=== PATIENT | male | born 1930 | race Caucasian/White ===

== ENCOUNTER 2017-01-13 14:07 | Day surgery (SDC) | payer MEDICARE, MEDICAID ==
[~2017-01-13 14:07] MED LIST: CENTTAB PO; LORTA5 PO
[2017-01-13 14:33] VITALS: BP 180/83; PULSE 75; RESP 18; O2SAT 99
--- NOTE | 2017-01-16 11:42 | RADRPT ---
EXAM DATE/TIME: 01/13/2017 14:40 [facility] COMPARISON : INDICATIONS : Consultation for evaluation of sir sphere (ytrium) embolization of the liver for treatment of metasta tic disease which is refractory to medical management. OBJECTIVE: Temperature: 98.7 Heart Rate: 75 Blood Pressure: 180/83 Respiratory: 20 Oximetry: 99 PNEUMONIA VACCINE: NO HISTORY OF PRESENT ILLNESS: The patient was initially diagnosed with colon carcinoma in 2011. He underwent resection of the prima ry lesion. The patient developed metastatic disease to the liver. The patient has been treated since 2011 with chemotherapy. Most recently however, the patient is no longer able to tolerate chemotherapy infusion do to decreasing blood counts. The patient has a previous history of external beam radiatio n to the liver as well. The most recent CT images dated 12/25/16 demonstrated the lesion in the superi or margin of the right lobe of the liver to be stable. There has been progression of the metastatic l esions within the left lobe. The patient's functional status at present is excellent. He lives on his own and enjoys a high quality of life. The patient's total bili is 0.9. There is no evidence of biliary ductal dilation on the patient's CT examination. Other than the metastatic lesions the liver is fairly normal in appearance. There is a s mall amount of ascites within the abdomen. PAST MEDICAL HISTORY : Carcinoma, colon. Metastatic, liver. PAST SURGICAL HISTORY : Right Hip fracture Right Elbow SOCIAL HISTORY : Social alcohol use. 1. NKDA Prinivil (Lisinopril) PHYSICAL EXAMINATION: The patient is a healthy-appearing 86-year-old in no acute distress. The patient has no current compl aints. Cardiovascular: No complaints. Lungs: No current complaints. Abdomen: Soft nontender. Extremities: Within normal limits IMAGING STUDIES: A large series of CT images were reviewed. Patient's scans dating back to 2011 were reviewed. These a gain demonstrate a stable mass in the dome of the liver measuring slightly larger than 5 cm. There linda s been significant progression of the lesions within the left lobe. ASSESSMENT: The case was discussed with Dr. Kb almaraz. The patient had external beam radiation therapy treatmen t to both the right and left lobe of the liver. As such, I do not feel the patient is a candidate for radioactive embolic therapy due to the previous dosage of radiation received. PLAN: The patient is not a candidate for ytrium embolic therapy due to previous high dose, external beam ra diation therapy to the liver. Dr. Posey will be notified. TIME SPENT: 30 minutes. Esvin Sanchez MD on January 15, 2017 at 16:27 Board Certified Radiologist. This report was verified electronically.
== END 2017-01-13 15:30 | disposition home or self-care (01) ==
LOC: HROP 14:07 → HRIP 14:12 → HROP 15:30
PROVIDERS: ATTEND Internal Medicine Hematology & Oncology
DX: C78.7 Secondary malignant neoplasm of liver and intrahepatic bile duct (principal); Z85.038 Personal history of other malignant neoplasm of large intestine

== ENCOUNTER 2017-11-27 13:05 | Day surgery (SDC) | payer MEDICARE, MEDICAID, OTHER ==
--- NOTE | 2017-11-27 14:17 | RADRPT ---
EXAM DATE/TIME: 11/27/2017 00:00 [facility] COMPARISON : INDICATIONS : <consult y 90<?>> OBJECTIVE: Temperature: 98.4 Heart Rate: 96 Blood Pressure: 154/82 Respiratory: 18 Oximetry: 100 PNEUMONIA VACCINE: HISTORY OF PRESENT ILLNESS: Helio is a very pleasant 87-year-old male accompanied by his son referred for possible local regio nal treatment for metastatic colorectal CA. He was originally diagnosed in 2010 and is status post mu ltiple lines of chemotherapy as well as radiation treatment 3 years ago to the dominant mass in the r ight lobe. Most recent CT examination demonstrates interval progression of disease with bilobar metas tatic disease and dominant mass in segment 2 of the liver. He has an excellent functional status (ECO G 0) with intact hepatic function. 1. anemia 2. diverticulosis 3. gout 4. hemorrhoids 5. coloc cancer PAST SURGICAL HISTORY : 1. port placement 2. tonsillectomy 3. upper endoscopy 4. broken pelvic 3 screws placed 5. colonoscopy SOCIAL HISTORY : No alcohol use. MEDICATIONS: 1. doxycycline 100 mg q.d. ketoconazole shampoo prn vit b 12 1 tab q.d. vit c 1 tab q.d. vit d 1 tab q.d. LABS: Platelet count of 77,000. Total bilirubin of 0.6 Albumin 3.3. AST 51 ALT 22 Alkaline phosphatase 106. CEA 644. PHYSICAL EXAMINATION: General: No acute distress Abdomen: Soft, nontender nondistended IMAGING STUDIES: CT examination dated 11/03/2017 is reviewed. There are multiple bilobar hepatic metastases with a celina nant mass in segment 2 measuring up to 8.3 cm and a dominant mass in the central right lobe measuring up to 6 cm. No evidence for extrahepatic disease with patent portal vein. ASSESSMENT: Progressive bilobar hepatic colorectal metastatic disease with excellent functional status and intact hepatic function. He does have a history of previous radiation treatment although remote. He is othe rwise a reasonable candidate for Yttrium-90 embolization. Extensive discussion regarding risks and benefits of yttrium-90 embolization. All questions were answ ered. PLAN: Tentative plan for yttrium-90 embolization. TIME SPENT: 30 minutes. Nitesh Willoughby MD on November 27, 2017 at 14:00 Board Certified Radiologist. This report was verified electronically.
== END 2017-11-27 14:00 | disposition home or self-care (01) ==
LOC: HROP 13:05 → HRIP 13:06 → HROP 14:00
PROVIDERS: ATTEND Internal Medicine Hematology & Oncology
DX: C78.7 Secondary malignant neoplasm of liver and intrahepatic bile duct (principal); C19 Malignant neoplasm of rectosigmoid junction

== ENCOUNTER 2017-12-03 06:18 | Day surgery (SDC) | payer MEDICARE, MEDICAID, OTHER ==
[~2017-12-03] VITALS: Ht 175.3 cm; Wt 54.5 kg
[2017-12-03] VITALS (9 sets, daily range): BP systolic 136–161; BP diastolic 66–94; PULSE 56–86; RESP 16–20; TEMP 97.9; O2SAT 95–97
[2017-12-03] MEDS ORDERED: SODIUM CHLOR 0.9% 1000 ML INJ 1,000 ML IV SCH (07:00)
[2017-12-03] MEDS ORDERED: VITA250C3 CHEW (07:04)
[2017-12-03] MEDS ORDERED: VITA500T4 PO (07:04)
[2017-12-03] MEDS ORDERED: VITA1000 PO (07:04)
[2017-12-03] MEDS ORDERED: DOXY100C PO (07:04)
[2017-12-03 07:41] LABS: INTERNATIONAL NORMALIZED RATIO 1.1 RATIO; PROTHROMBIN TIME - PATIENT 11.4 SEC (9.8-11.6)
[2017-12-03] MEDS ORDERED: MIDAZOLAM HCL 2 MG/2 ML VIAL ONE ×2 (08:58→09:49)
[2017-12-03] MEDS ORDERED: fentaNYL CITRATE 250 MCG/5 ML AMP ONE (08:58)
[2017-12-03] MEDS ORDERED: VERAPAMIL HCL 5 MG/2 ML VIAL ONE (08:59)
[2017-12-03] MEDS ORDERED: IMPLANTED VASCULAR ACCESS PORT - SODIUM CHLORIDE FLUSH IV FLUSH SCH (10:00)
[2017-12-03] MEDS ORDERED: IOHEXOL 350 MG/ML 50 ML BTL (for RAD DIAG) OTHER ONE (10:00)
[2017-12-03] MEDS ORDERED: GELATIN 12 MM/7 MM FOAM I-ARTERIAL ONE (10:20)
[2017-12-03] MEDS ORDERED: SODIUM CHLORIDE 0.9% INJ 20 ML ONE (10:30)
[2017-12-03] MEDS ORDERED: STERILE WATER FOR INJECTION 10 ML VIAL ONE (10:30)
--- NOTE | 2017-12-03 11:18 | PD.RAD ---
Post Procedure Progress Note Pre Procedure Diagnosis: (1) Metastases to the liver Post Procedure Diagnosis: (1) Metastases to the liver Procedure Date: Dec 03, 2017 Supervising Radiologist: Nitesh Willoughby Proceduralist/Assist: Tracie Mobley RT(R)(), Marlene Samaniego RT(R) Anesthesia: Conscious Sedation Plan of Activity Patient to Unit: ROPU Patient Condition: Good See PACS Report for procedural detail/treatment Nitesh Willoughby MD Dec 03, 2017 11:18
--- NOTE | 2017-12-03 13:22 | RADRPT ---
EXAM DATE/TIME: 12/03/2017 08:55 [place] Corrected on: December 05, 2017; COMPARISON: No previous studies available for comparison. INDICATIONS : 87-year-old with history of colorectal metastatic disease to the liver who presents for Y90 mapping. MEDICAL HISTORY : Anemia, Gout, Metastatic colon cancer, Large mass ascending colon, Hepatic lesions mostly in the righ t lobe SURGICAL HISTORY : Port placement, Upper endoscopy, Left hip surgery, Colonoscopy ENCOUNTER: Initial ACUITY: > 1 year PAIN SCORE: 0/10 FLUORO TIME: 26.7 minutes IMAGE SERIES: 9 ACCESS SITE: Left Radial artery SEDATION TIME: 90 minutes CONTRAST: 1.) 60 cc Omnipaque (iohexol) 350 MEDICATION(S): 1.) 3.5 mg midazolam (Versed) IV 2.) 175 mcg fentanyl (Sublimaze) IV DEVICE(S): 1.) gastroduodenal artery Interlock 2D [id number] embolic coil(s) 2.) gastroduodenal artery Interlock 2D [id number] embolic coil(s) 3.) gastroduodenal artery 12-7mm Gelfoam 4.) Left radial artery Radial band [id number] PROCEDURES PERFORMED: 1. Ultrasound guided left radial artery access 2. Administration of conscious sedation 3. Selective catheterization in the common hepatic artery with selective angiography 4. Subselective catheter placement in the proper hepatic artery with subselective angiography 5. Subselective catheter placement in the left hepatic artery with subsequent angiography 6. Subselective catheter placement in the right hepatic artery with subselective angiography 7. Embolization of the gastroduodenal artery 8. Interarterial administration of technetium 99m MAA separately in the left and right hepatic arteri es FINDINGS: The patient was placed supine. The access site was prepped in sterile fashion. Full sterile technique was used, including cap, mask, sterile gloves and gown, and a large sterile sheet. Hand hygiene and 2% chlorhexidine and/or Betadine/alcohol prep was utilized per protocol for cutaneous antisepsis. The skin and subcutaneous tissues were infiltrated with local anesthetic solution. Monitored moderate conscious sedation was provided for this procedure with continued monitoring of pa tient consciousness and physiologic status provided by interventional radiology nurse throughout the procedure and documented. Patient was placed supine on the angiographic table. Ultrasound evaluation of the left radial artery demonstrated the artery to be patent. Single image was obtained and placed in PACS archive. Micropunc ture needle was advanced into the left radial artery under direct ultrasound guidance and subsequentl y exchanged for a slim 5 Chilean sheath. The 4 [place]an Susana catheter was then advanced into the celiac artery and subsequently secured in the common hepatic artery and angiography was performed. This dem onstrated standard celiac anatomy with significant abnormal enhancement throughout the left lobe of t he liver near the dome consistent with patient's known metastatic disease. Microcatheter was then adv anced into the gastroduodenal artery and position was confirmed a small amount of contrast. The gastr oduodenal artery was subsequently embolized with interlock coils and Gelfoam. Followup angiography de monstrated stasis of flow in the GDA. The catheter was then advanced into the proper hepatic artery a nd angiography was performed. A very small tortuous probable supraduodenal artery was identified near the origin of the right hepatic artery. Numerous attempts at cannulating this artery were unsuccessf ul although a guidewire could be advanced into the proximal segment. Microcatheter was subsequent adv anced into the left hepatic artery and angiography was performed. This again confirm extensive abnorm al enhancement throughout the left lobe. Catheter was then readvanced into the right hepatic artery a nd angiography was performed. This demonstrated primary abnormal enhancement near the dome of the arturo er and inferiorly. Finally, a solution containing technetium 99m MAA was injected into the left and r ight hepatic arteries and the catheter was removed. Hemostasis was then obtained by placement of a radial compression device. Patient tolerated the proce dure well. CONCLUSION: 1. Standard celiac anatomy. 2. Coil embolization of the gastroduodenal artery. 3. A very small tortuous probable supraduodenal branch arising from the proximal right hepatic artery could not be cannulated despite multiple attempts, as above. 4. Uncomplicated interarterial administration of technetium 99m MAA for performance of Yttrium-90 map ping. Nitesh Willoughby MD on December 03, 2017 at 13:12 Board Certified Radiologist. Board Certified Radiologist. This report was verified electronically.
--- NOTE | 2017-12-03 15:50 | RADRPT ---
EXAM DATE/TIME: 12/03/2017 13:52 [facility] COMPARISON: No previous studies available for comparison. INDICATIONS : Rectal and colon cancer. DOSE: 4.2 mCi Tc99m MAA Intraarterial IMAGING: SPECT/CT imaging with fusion was performed. RADIATION DOSE: 2.49 CTDIvol (mGy) MEDICAL HISTORY : Carcinoma, colon. Hernia, hiatal. SURGICAL HISTORY : Right elbow and pelvis. ENCOUNTER: Initial ACUITY: 1 day PAIN SCALE: 0/10 LOCATION: Liver. COMPARISON: No previous studies obtainable for comparison. FINDINGS: Activity is confined to the liver. No extrahepatic activity is demonstrated. There is a 6.1% lung yuan nt calculation. CONCLUSION: 1. Activity injected in the hepatic arteries is confined to the liver. No extrahepatic activity. 2. Lung shunt of 6.1%. Nitesh Willoughby MD on December 03, 2017 at 15:42 Board Certified Radiologist. This report was verified electronically.
== END 2017-12-03 16:15 | disposition home or self-care (01) ==
LOC: HROP 06:18 → HRIP 06:19 → HROP 16:15
PROVIDERS: ATTEND Internal Medicine Hematology & Oncology
DX: C78.7 Secondary malignant neoplasm of liver and intrahepatic bile duct (principal); C19 Malignant neoplasm of rectosigmoid junction; D64.9 Anemia, unspecified; K44.9 Diaphragmatic hernia without obstruction or gangrene; M10.9 Gout, unspecified
CPT/HCPCS: 36247; 36248; 37243; 75726; 75774; 76937; 78802; 85610; 85730; 99152; 99153; A9540; C1769; C1887; C1894; J2250; J3010; J7030; Q9967

== ENCOUNTER 2017-12-09 09:54 | Emergency (ER) | payer MEDICARE, MEDICAID ==
[~2017-12-09] VITALS: Ht 175.3 cm; Wt 70.0 kg
[~2017-12-09 09:54] MED LIST changes: +DOXY100C PO; +VITA1000 PO; +VITA250C3 CHEW; +VITA500T4 PO
[2017-12-09 10:00] VITALS: BP 147/69; PULSE 96; RESP 16; TEMP 98; O2SAT 99
--- NOTE | 2017-12-09 10:47 | PD ---
HPI Chief Complaint: Abdominal Pain Time Seen by Provider: 10:12 Travel History International Travel<30 days: No Contact w/Intl Traveler<30days: No Traveled to known affect area: No History of Present Illness HPI Patient is an 87-year-old male with a history of colon cancer with metastases to liver according Dr. Peterson's notes has not had a very good response to chemotherapy. The patient this week is being evaluated for Ytrium embolization and apparently had some coiling as well as some technetium mapping of his hepatic artery system for this procedure. Had a catheterization with interventional radiology this week through his right radial artery. The patient is now experiencing some worsening right upper quadrant pain and was not told that he was supposed to have significant pain after the procedure so wanted to come in and be seen. He called the interventional radiologist on- call which was Dr. Schaefer who told him to come in and be seen to make sure that he is on target for his embolization procedure. Patient denies any nausea vomiting denies any skin changes denies any diarrhea or constipation. states the pain is moderate, right upper quadrant, no radiation, context as above PFSH Past Medical History Cancer: Yes (COLON AND LIVER) Cardiovascular Problems: No Chemotherapy: Yes Cerebrovascular Accident: No Diabetes: No Endocrine: No Genitourinary: No Hepatitis: No Hiatal Hernia: Yes Immune Disorder: No Musculoskeletal: No Neurologic: No Psychiatric: No Reproductive: No Respiratory: No Thyroid Disease: No Tetanus Vaccination: Unknown Influenza Vaccination: No Past Surgical History Abdominal Surgery: No AICD: No Arteriovenous Shunt: No Body Medical Devices: hardware in the right elbow Cardiac Surgery: No Ear Surgery: No Endocrine Surgery: No Eye Surgery: No Genitourinary Surgery: No Gynecologic Surgery: No Insulin Pump: No Joint Replacement: No Oral Surgery: No Pacemaker: No Thoracic Surgery: Yes (PORT INSERTION) Other Surgery: Yes (INFUSAPORT PLACEMENT) Social History Alcohol Use: No Tobacco Use: No Substance Use: No Allergies-Medications (Allergen,Severity, Reaction): Coded Allergies: No Known Allergies (Unverified , 10/20/12) Reported Meds & Prescriptions Reported Meds & Active Scripts Active Reported Vitamin D-1000 (Cholecalciferol) 1,000 Unit Tab 1,000 Units PO DAILY Vitamin C (Ascorbic Acid) 250 Mg Chew 1,000 Mg CHEW DAILY Vitamin B-12 (Cyanocobalamin) 500 Mcg Tab 2,500 Mcg PO DAILY Doxycycline Hyclate 100 Mg Cap 100 Mg PO BID [place] 5-325 mg (Hydrocodone-Acetaminophen 5-325 mg) 325 Mg/5 Mg Tab 1-2 Tab PO Q4-6HPRN UNKNOWN DOSE Daily Multi-Vitamin/Mine (Multiple Vitamins W/ Minerals) Tab 1 PO DAILY Review of Systems Except as stated in HPI: all other systems reviewed are Neg Physical Exam Narrative GENERAL: Well-developed very thin male in no obvious distress peer SKIN: Focused skin assessment warm/dry. HEAD: Atraumatic. Normocephalic. EYES: Pupils equal and round. No scleral icterus. No injection or drainage. ENT: No nasal bleeding or discharge. Mucous membranes pink and moist. NECK: Trachea midline. No JVD. CARDIOVASCULAR: Regular rate and rhythm. No murmur appreciated. RESPIRATORY: No accessory muscle use. Clear to auscultation. Breath sounds equal bilaterally. GASTROINTESTINAL: Abdomen soft, patient's fairly tender and well localized to the right upper quadrant, there is some hepatomegaly. No rebound no percussive tenderness in any of the other quadrants however there is mild percussive tenderness in the right upper quadrant. nondistended. Hepatic and splenic margins not palpable. MUSCULOSKELETAL: No obvious deformities. No clubbing. No cyanosis. No edema. NEUROLOGICAL: Awake and alert. No obvious cranial nerve deficits. Motor grossly within normal limits. Normal speech. PSYCHIATRIC: Appropriate mood and affect; insight and judgment normal. Data Data Last Documented VS Vital Signs Date Time Temp Pulse Resp B/P (MAP) Pulse Ox O2 Delivery O2 Flow Rate FiO2 12/09/17 13:46 12/09/17 12:19 18 12/09/17 10:54 90 97 Room Air 12/09/17 10:00 98.0 Orders Orders Complete Blood Count With Diff (12/09/17 10:46) Comprehensive Metabolic Panel (12/09/17 10:46) Lipase (12/09/17 10:46) Prothrombin Time / Inr (Pt) (12/09/17 10:46) Act Partial Throm Time (Ptt) (12/09/17 10:46) Iv Access Insert/Monitor (12/09/17 10:46) Ecg Monitoring (12/09/17 10:46) Oximetry (12/09/17 10:46) Sodium Chloride 0.9% Flush (Ns Flush) (12/09/17 11:00) Ibuprofen (Motrin) (12/09/17 11:00) Ct Abd/Pel W Iv Contrast(Rout) (12/09/17 ) Iohexol 350 Inj (Omnipaque 350 Inj) (12/09/17 12:31) Ed Discharge Order (12/09/17 13:21) Heparin Central Flush (Heparin Central F (12/09/17 13:30) Labs Laboratory Tests Test 12/09/17 11:05 White Blood Count 5.4 TH/MM3 Red Blood Count 3.39 MIL/MM3 Hemoglobin 10.4 GM/DL Hematocrit 30.5 % Mean Corpuscular Volume 90.0 FL Mean Corpuscular Hemoglobin 30.8 PG Mean Corpuscular Hemoglobin Concent 34.2 % Red Cell Distribution Width 15.0 % Platelet Count 107 TH/MM3 Mean Platelet Volume 9.5 FL Neutrophils (%) (Auto) 76.1 % Lymphocytes (%) (Auto) 12.0 % Monocytes (%) (Auto) 10.2 % Eosinophils (%) (Auto) 1.5 % Basophils (%) (Auto) 0.2 % Neutrophils # (Auto) 4.1 TH/MM3 Lymphocytes # (Auto) 0.7 TH/MM3 Monocytes # (Auto) 0.6 TH/MM3 Eosinophils # (Auto) 0.1 TH/MM3 Basophils # (Auto) 0.0 TH/MM3 CBC Comment DIFF FINAL Differential Comment Prothrombin Time 12.1 SEC Prothromb Time International Ratio 1.2 RATIO Activated Partial Thromboplast Time 40.3 SEC Blood Urea Nitrogen 15 MG/DL Creatinine 1.01 MG/DL Random Glucose 126 MG/DL Total Protein 6.6 GM/DL Albumin 2.5 GM/DL Calcium Level 8.5 MG/DL Alkaline Phosphatase 230 U/L Aspartate Amino Transf (AST/SGOT) 105 U/L Alanine Aminotransferase (ALT/SGPT) 106 U/L Total Bilirubin 1.2 MG/DL Sodium Level 142 MEQ/L Potassium Level 3.6 MEQ/L Chloride Level 109 MEQ/L Carbon Dioxide Level 24.7 MEQ/L Anion Gap 8 MEQ/L Estimat Glomerular Filtration Rate 70 ML/MIN Lipase 94 U/L MDM Medical Decision Making Medical Screen Exam Complete: Yes Emergency Medical Condition: Yes Differential Diagnosis Liver injury, liver hematoma, liver bleeding, intra-abdominal bleeding, Narrative Course Patient was roomed in the emergency department, spoke with Dr. Duval about this patient and told him that he is somewhat tender over his liver, he did have a good response to ibuprofen is feeling better. I suggested that some form of imaging is necessary but after discussion with him he recommends that a routine CT abdomen pelvis with IV contrast should be sufficient. So ordered and did not show any evidence of acute injury from procedure: Last 24 hours Impressions Abdomen/Pelvis CT 12/09/17 0000 Signed Impressions: Service Date/Time: Saturday, December 09, 2017 12:24 - CONCLUSION: 1. Multiple hepatic masses as described above. 2. Mild splenomegaly with 8 mm indeterminate low density lesion anteriorly. 3. Distended thick-walled urinary bladder with multiple diverticula. 4. Uncomplicated colonic diverticulosis. 5. Left inguinal hernia containing fat and fluid. 6. Minimal ascites. 7. Tiny pericardial effusion. Storm Morris MD Ultimately I was able to discuss this patient with Dr. Schaefer as well, he actually took the patient's phone call and referred him to the emergency department and after the CT read as negative and discussion of the patient's minimally elevated transaminases he agrees the patient is still on target for intravascular embolization procedure next week. I have no other emergent concerns about this patient at this time he is stable for discharge. He was offered a prescription for opiate pain medication and declined stating that ibuprofen will work fine for him. Discussed following up with his oncologist and his interventional radiologist as prescribed. He is stable for discharge Diagnosis Primary Impression: RUQ abdominal pain Disposition: 01 DISCHARGE HOME Condition: Stable Storm León MD Dec 09, 2017 10:47
[2017-12-09 10:54] VITALS: BP 153/70; PULSE 90; RESP 18; O2SAT 96; O2SAT 97
[2017-12-09] MEDS ORDERED: IBUPROFEN 600 MG TAB PO ONE (11:00)
[2017-12-09] MEDS ORDERED: SODIUM CHLORIDE 0.9% FLUSH 10 ML FLUSH IV FLUSH PRN (11:00)
[2017-12-09 11:26] LABS: AUTOMATED NEUTROPHIL # 4.1 TH/MM3 (1.8-7.7); BASOPHIL % 0.2 % (0.0-2.0); EOSINOPHIL # 0.1 TH/MM3 (0-0.4); EOSINOPHIL % 1.5 % (0.0-4.0); HEMATOCRIT 30.5 % (39.0-51.0); HEMOGLOBIN 10.4 GM/DL (13.0-17.0); LYMPHOCYTE # 0.7 TH/MM3 (1.0-4.8); MEAN CORPUSCULAR HEMOGLOBIN 30.8 PG (27.0-34.0); MEAN CORPUSCULAR HGB CONC 34.2 % (32.0-36.0); MEAN PLATELET VOLUME 9.5 FL (7.0-11.0); MONO % 10.2 % (0.0-8.0); MONOCYTE # 0.6 TH/MM3 (0-0.9); NEUT % 76.1 % (16.0-70.0); PLATELET COUNT 107 TH/MM3 (150-450); RED BLOOD COUNT 3.39 MIL/MM3 (4.50-5.90); WHITE BLOOD COUNT 5.4 TH/MM3 (4.0-11.0)
[2017-12-09 11:37] LABS: INTERNATIONAL NORMALIZED RATIO 1.2 RATIO; PROTHROMBIN TIME - PATIENT 12.1 SEC (9.8-11.6)
[2017-12-09 11:44] LABS: ALBUMIN 2.5 GM/DL (3.4-5.0); ALT (GPT) 106 U/L (12-78); AST (GOT) 105 U/L (15-37); BICARBONATE 24.7 MEQ/L (21.0-32.0); BLOOD UREA NITROGEN 15 MG/DL (7-18); CALCIUM 8.5 MG/DL (8.5-10.1); CHLORIDE 109 MEQ/L (98-107); CREATININE 1.01 MG/DL (0.60-1.30); GLOMERULAR FILTRATION RATE 70 ML/MIN (>89); GLUCOSE,RANDOM 126 MG/DL (74-106); SODIUM (NA) 142 MEQ/L (136-145)
[2017-12-09 11:46] LABS: ALKALINE PHOSPHATASE 230 U/L (45-117); TOTAL BILIRUBIN ADULT 1.2 MG/DL (0.2-1.0); TOTAL PROTEIN 6.6 GM/DL (6.4-8.2)
[2017-12-09 12:19] VITALS: RESP 18
[2017-12-09] MEDS ORDERED: IOHEXOL 350 MG/ML 10 ML VIAL (for RAD DIAG) IVCONTRAST ONE (12:31)
--- NOTE | 2017-12-09 12:55 | RADRPT ---
EXAM DATE/TIME: 12/09/2017 12:24 [facility] COMPARISON: No previous studies available for comparison. INDICATIONS : Right abdomen pain IV CONTRAST: 93 cc Omnipaque 350 (iohexol) IV ORAL CONTRAST: No oral contrast ingested. RADIATION DOSE: 6.71 CTDIvol (mGy) MEDICAL HISTORY : Carcinoma, colon. Carcinoma, hepatocellular. SURGICAL HISTORY : None. ENCOUNTER: Initial ACUITY: 1 day PAIN SCALE: 4/10 LOCATION: Right anterior TECHNIQUE: Volumetric scanning of the abdomen and pelvis was performed. Using automated exposure control and ad justment of the mA and/or kV according to patient size, radiation dose was kept as low as reasonably achievable to obtain optimal diagnostic quality images. DICOM format image data is available electro nically for review and comparison. FINDINGS: Multiple hepatic masses are noted with the largest mass in the left lobe measuring 9.5 cm and the lar gest mass in the right lobe measuring 6.6 cm. Several smaller lesions are noted within both lobes als o. The findings are suggestive of multifocal hepatocellular carcinoma or possible metastatic disease. Some ascites is noted along the edge of the liver. No biliary ductal dilatation is noted. The gallbl adder is nondistended. The spleen is mildly prominent. There is an indeterminate low density lesion w ithin the anterior aspect of the spleen measures 8 mm. The pancreas is normal. The adrenal glands are normal bilaterally. The kidneys enhance briskly and demonstrate no evidence of focal mass or hydrone phrosis. The abdominal aorta is calcified but is not aneurysmally dilated. A circumaortic left renal vein is noted. The inferior vena cava is normal. No para-aortic, retrograde or mesenteric lymphadenop athy is noted. Uncomplicated colonic diverticulosis is noted. No acute diverticulitis is noted. The u rinary bladder is distended and its wall is thickened. Multiple diverticula are noted extending from the urinary bladder. The prostate gland is mildly prominent and contains central calcifications. Left inguinal hernia is noted and contains fat and some fluid. No pelvic lymphadenopathy is noted. Fibrot ic scarring is noted within the lung bases. Tiny pericardial effusion is noted Three screws are noted within the left proximal femur. CONCLUSION: 1. Multiple hepatic masses as described above. 2. Mild splenomegaly with 8 mm indeterminate low density lesion anteriorly. 3. Distended thick-walled urinary bladder with multiple diverticula. 4. Uncomplicated colonic diverticulosis. 5. Left inguinal hernia containing fat and fluid. 6. Minimal ascites. 7. Tiny pericardial effusion. Storm Morris MD on December 09, 2017 at 12:43 Board Certified Radiologist. This report was verified electronically.
== END 2017-12-09 14:19 | disposition home or self-care (01) ==
LOC: NEPC 09:54
DX: R10.11 Right upper quadrant pain (principal); R16.0 Hepatomegaly, not elsewhere classified; R16.1 Splenomegaly, not elsewhere classified; K57.30 Diverticulosis of large intestine without perforation or abscess without bleeding; K40.90 Unilateral inguinal hernia, without obstruction or gangrene, not specified as recurrent; R18.8 Other ascites; I31.3 Pericardial effusion (noninflammatory); Z85.038 Personal history of other malignant neoplasm of large intestine; Z85.05 Personal history of malignant neoplasm of liver
CPT/HCPCS: 74177; 80053; 83690; 85025; 85610; 85730; 99284; J1642; Q9967

== ENCOUNTER → 2017-12-18 | Outpatient (CLI) | payer MEDICARE, MEDICAID ==
[2017-12-18 11:47] LABS: DIRECT BILIRUBIN ADULT 0.3 MG/DL (0.0-0.2)
[2017-12-18 11:50] LABS: INDIRECT BILIRUBIN 0.2 MG/DL (0.0-0.8); TOTAL BILIRUBIN ADULT 0.5 MG/DL (0.2-1.0)
== END ==
LOC: CLAB 10:02
PROVIDERS: ATTEND Radiology Diagnostic Radiology
DX: C18.9 Malignant neoplasm of colon, unspecified (principal); R79.89 Other specified abnormal findings of blood chemistry
CPT/HCPCS: 36415; 80076

== ENCOUNTER 2017-12-30 06:04 | Day surgery (SDC) | payer MEDICAID, MEDICARE ==
[~2017-12-30] VITALS: Ht 175.3 cm; Wt 70.5 kg
[2017-12-30] VITALS (8 sets, daily range): BP systolic 127–161; BP diastolic 65–88; PULSE 66–97; RESP 16–18; TEMP 98–98.8; O2SAT 91–98
[2017-12-30] MEDS ORDERED: NITROGLYCERIN 1000 MCG/5 ML VIAL OTHER ONE (06:05)
[2017-12-30] MEDS ORDERED: PANT40TA3 PO (06:51)
[2017-12-30 07:36] LABS: AUTOMATED NEUTROPHIL # 2.6 TH/MM3 (1.8-7.7); BASOPHIL % 0.8 % (0.0-2.0); EOSINOPHIL # 0.3 TH/MM3 (0-0.4); EOSINOPHIL % 7.1 % (0.0-4.0); HEMATOCRIT 30.4 % (39.0-51.0); HEMOGLOBIN 10.2 GM/DL (13.0-17.0); LYMPH % 16.4 % (9.0-44.0); LYMPHOCYTE # 0.7 TH/MM3 (1.0-4.8); MEAN CELL VOLUME 88.8 FL (80.0-100.0); MEAN CORPUSCULAR HEMOGLOBIN 29.9 PG (27.0-34.0); MEAN CORPUSCULAR HGB CONC 33.7 % (32.0-36.0); MEAN PLATELET VOLUME 8.5 FL (7.0-11.0); MONOCYTE # 0.5 TH/MM3 (0-0.9); NEUT % 63.7 % (16.0-70.0); PLATELET COUNT 97 TH/MM3 (150-450); RED BLOOD COUNT 3.42 MIL/MM3 (4.50-5.90); RED CELL DISTRIBUTION WIDTH 15.8 % (11.6-17.2); WHITE BLOOD COUNT 4.1 TH/MM3 (4.0-11.0)
[2017-12-30] MEDS ORDERED: ONDANSETRON HCL 4 MG/2 ML VIAL IV PUSH SCH (07:45)
[2017-12-30] MEDS ORDERED: DEXAMETHASONE SOD PHOS 20 MG/5 ML VIAL IV PUSH SCH (07:45)
[2017-12-30] MEDS ORDERED: PANTOPRAZOLE SODIUM 40 MG VIAL IV PUSH SCH (07:45)
[2017-12-30] MEDS ORDERED: SODIUM CHLOR 0.9% 1000 ML INJ 1,000 ML IV SCH (07:45)
[2017-12-30] MEDS ORDERED: ceFAZolin 1,000 MG/NS 100 ML IV SCH ×2 (07:45)
[2017-12-30] MEDS ORDERED: KETOROLAC TROMETHAMINE 30 MG/ML (IVP) VIAL IV PUSH SCH ×2 (07:45→08:00)
[2017-12-30 07:49] LABS: INTERNATIONAL NORMALIZED RATIO 1.1 RATIO; PROTHROMBIN TIME - PATIENT 11.1 SEC (9.8-11.6)
[2017-12-30 08:06] LABS: ALBUMIN 3.1 GM/DL (3.4-5.0); AST (GOT) 54 U/L (15-37); BICARBONATE 25.7 MEQ/L (21.0-32.0); BLOOD UREA NITROGEN 10 MG/DL (7-18); CALCIUM 9.1 MG/DL (8.5-10.1); CHLORIDE 107 MEQ/L (98-107); CREATININE 0.91 MG/DL (0.60-1.30); GLOMERULAR FILTRATION RATE 79 ML/MIN (>89); GLUCOSE,RANDOM 88 MG/DL (74-106); SODIUM (NA) 139 MEQ/L (136-145)
[2017-12-30 08:07] LABS: ALT (GPT) 28 U/L (12-78)
[2017-12-30 08:09] LABS: ALKALINE PHOSPHATASE 191 U/L (45-117); TOTAL BILIRUBIN ADULT 0.6 MG/DL (0.2-1.0); TOTAL PROTEIN 7.2 GM/DL (6.4-8.2)
[2017-12-30] MEDS ORDERED: fentaNYL CITRATE 250 MCG/5 ML AMP ONE (08:23)
[2017-12-30] MEDS ORDERED: MIDAZOLAM HCL 2 MG/2 ML VIAL ONE (08:23)
[2017-12-30] MEDS ORDERED: VERAPAMIL HCL 5 MG/2 ML VIAL ONE (08:32)
--- NOTE | 2017-12-30 11:53 | PD.RAD ---
Post Procedure Progress Note Pre Procedure Diagnosis: (1) Metastases to the liver Post Procedure Diagnosis: (1) Metastases to the liver Procedure Date: Dec 30, 2017 Supervising Radiologist: Nitesh Willoughby Proceduralist/Assist: Bjorn Villela, RT(R), Lory Fernandez RT(R) Anesthesia: Conscious Sedation Plan of Activity Patient to Unit: ROPU Patient Condition: Good See PACS Report for procedural detail/treatment Nitesh Willoughby MD Dec 30, 2017 11:53
--- NOTE | 2017-12-30 11:58 | RADRPT ---
EXAM DATE/TIME: 12/30/2017 07:59 COMPARISON: No previous studies available for comparison. INDICATIONS : Patient presents with liver cancer here for a Y-90 treatment. MEDICAL HISTORY : [place]-rectal Cancer, Liver Cancer SURGICAL HISTORY : Port Placement, Tonsillectomy, Colonoscopy, Pelvic Fracture 3 screws, Right Elbow ENCOUNTER: Sequela ACUITY: > 1 year PAIN SCORE: 0/10 FLUORO TIME: 12.9 minutes IMAGE SERIES: 1 ACCESS SITE: Left Radial artery SEDATION TIME: 70 minutes CONTRAST: 1.) 15 cc Omnipaque (iohexol) 350 MEDICATION(S): 1.) 3.5 mg midazolam (Versed) IV Procedures performed: 1. administration of conscious sedation 2. ultrasound guided left radial artery access 3. selective catheter placement in the proper hepatic artery with selective angiography 4. subselective catheter placement in the left hepatic artery with subsequent angiography 5. yttrium-90 embolization of the left hepatic arteries DISCUSSION: Monitored moderate conscious sedation was provided for this procedure with continued monitoring of pa tient consciousness and physiologic status provided by interventional radiology nurse throughout the procedure and documented. Patient was placed supine on the angiographic table. Ultrasound evaluation of the left radial artery demonstrated the artery to be patent. Single image was obtained and placed in PACS archive. Micropunc ture needle was advanced into the left radial artery under direct ultrasound guidance and subsequentl y exchanged for a slim 5 [place] sheath. The 4 [place] Susana catheter was then advanced into the proper hepatic artery and angiography was performed. This demonstrated continued occlusion of the previousl y embolized gastroduodenal artery with diffusely abnormal enhancement throughout the left lobe and ne ar the dome of the right liver. Microcatheter was then advanced into the origin of the left hepatic a rtery and angiography was repeated. This confirmed the findings. The SIR-spheres acrylic delivery box (V-vial) and delivery set were prepped in standard fashion. The labels on the tubing and needles corresponding to merchandise complaint adjuster's designations. The dose of SIR-sphere s to be delivered was determined by taking into account the patient's body surface area, tumor burden , liver function test, tumor burden, performance status, and lung shunting. Next, multiple small aliq uots of SIR-spheres were delivered intra-arterially to the hepatic masses with close fluoroscopic mon itoring to ensure forward flow in the vessel during the administration of the microspheres. Followup angiogram demonstrated persistent forward flow. Next, the microcatheter was withdrawn into the angiographic catheter, which was then removed from the sheath, and catheter tip grasped with multiple layers of sterile gauze. The angiographic catheter, m icrocatheter, V- vial, and all the tubing and needles associated with the delivery set were placed in to a container provided by radiation safety. Hemostasis was then obtained by placement of a radial compression device. Patient tolerated the proce dure well. FINDINGS: There was successful delivery of the radioactive microspheres to the hepatic artery. The microcathete r was positioned in the hepatic artery during the delivery of the microspheres. Throughout the proced ure, antegrade flow is maintained. No reflux was demonstrated fluoroscopically. Visually, entire dose within the V-vial was delivered to the patient. No leaks or spills of the radioactive material where identified during or after the procedure. CONCLUSION: 1. Technically successful Y-90 radioembolization of the left hepatic arteries, as above. Nitesh Willoughby MD on December 30, 2017 at 11:48 Board Certified Radiologist. This report was verified electronically.
--- NOTE | 2017-12-30 11:59 | RADRPT ---
EXAM DATE/TIME: 12/30/2017 10:49 [facility] COMPARISON: No previous studies available for comparison. PRIOR BONE SCANS: No correlative bone scan available for comparison. INDICATIONS : Rectal and colon cancer. DOSE: 32.6 mCi Yttrium-90 Intraarterial MEDICAL HISTORY : Carcinoma, colon. Hernia, hiatal. SURGICAL HISTORY : Right elbow and pelvis. ENCOUNTER: Initial ACUITY: >1 yr PAIN SCALE: 0/10 LOCATION: upper quadrant Liver. COMPARISON: No previous studies obtainable for comparison. FINDINGS: Activity is demonstrated in the left lobe of the liver consistent with left hepatic artery administra tion yttrium-90. No evidence for extrahepatic activity. CONCLUSION: 1. Activity confined to the left lobe of the liver without evidence for extrahepatic activity. Nitesh Willoughby MD on December 30, 2017 at 11:56 Board Certified Radiologist. This report was verified electronically.
[2017-12-30] MEDS ORDERED: IMPLANTED VASCULAR ACCESS PORT - SODIUM CHLORIDE FLUSH PRN IV FLUSH (13:00)
== END 2017-12-30 15:05 | disposition home or self-care (01) ==
LOC: HROP 06:04 → HRIP 06:08 → HROP 15:05
PROVIDERS: ATTEND Internal Medicine Hematology & Oncology
DX: C78.7 Secondary malignant neoplasm of liver and intrahepatic bile duct (principal); C18.9 Malignant neoplasm of colon, unspecified; K46.9 Unspecified abdominal hernia without obstruction or gangrene
CPT/HCPCS: 36247; 36248; 37243; 75726; 75774; 76937; 77300; 77370; 78201; 79445; 80053; 85025; 85610; 85730; 99152; 99153; C1769; C1887; C1894; C2616; C9113; J0690; J1100; J1885; J2250; J2405; J3010

== ENCOUNTER 2018-01-06 13:16 | Day surgery (SDC) | payer MEDICARE ==
[~2018-01-06 13:16] MED LIST changes: -CENTTAB PO; -LORTA5 PO; +PANT40TA3 PO
[2018-01-06 13:38] VITALS: BP 141/65; PULSE 85; RESP 20; TEMP 98.4; O2SAT 96
--- NOTE | 2018-01-06 14:21 | RADRPT ---
EXAM DATE/TIME: 01/06/2018 00:00 [facility] COMPARISON : INDICATIONS : F/U Y90 OBJECTIVE: Temperature: 98.4 Heart Rate: 85 Blood Pressure: 141/65 Respiratory: 20 Oximetry: 96 PNEUMONIA VACCINE: HISTORY OF PRESENT ILLNESS: 87-year-old male postop day #7 status post left hepatic artery Y-90 embolization for metastatic color ectal CA. Very uneventful postoperative course. Patient has been completely asymptomatic and is witho ut complaints. Left radial access site is clean dry and intact. No abdominal pain. ASSESSMENT: Completely uneventful postoperative course following left hepatic artery Y90 embolization. Will reeva luate hepatic function with CMP next week with tentative plan for right hepatic artery embolization i n 2 weeks. TIME SPENT: 15 minutes Nitesh Willoughby MD on January 06, 2018 at 14:13 Board Certified Radiologist. This report was verified electronically.
== END 2018-01-06 14:11 | disposition home or self-care (01) ==
LOC: HROP 13:16 → HRIP 13:21 → HROP 14:11
PROVIDERS: ATTEND Radiology Diagnostic Radiology
DX: C78.7 Secondary malignant neoplasm of liver and intrahepatic bile duct (principal); C19 Malignant neoplasm of rectosigmoid junction

== ENCOUNTER → 2018-01-07 | Outpatient (CLI) | payer MEDICARE ==
[2018-01-07 12:23] LABS: ALT (GPT) 40 U/L (12-78)
[2018-01-07 12:25] LABS: ALKALINE PHOSPHATASE 171 U/L (45-117); TOTAL BILIRUBIN ADULT 0.6 MG/DL (0.2-1.0); TOTAL PROTEIN 6.7 GM/DL (6.4-8.2)
[2018-01-07 12:28] LABS: ALBUMIN 2.9 GM/DL (3.4-5.0); AST (GOT) 50 U/L (15-37); BICARBONATE 26.8 MEQ/L (21.0-32.0); BLOOD UREA NITROGEN 17 MG/DL (7-18); CALCIUM 8.9 MG/DL (8.5-10.1); CHLORIDE 105 MEQ/L (98-107); CREATININE 0.96 MG/DL (0.60-1.30); GLOMERULAR FILTRATION RATE 74 ML/MIN (>89); GLUCOSE,FASTING 107 MG/DL (74-99); SODIUM (NA) 139 MEQ/L (136-145)
== END ==
LOC: CLAB 11:12
PROVIDERS: ATTEND Radiology Diagnostic Radiology
DX: C19 Malignant neoplasm of rectosigmoid junction (principal); C78.7 Secondary malignant neoplasm of liver and intrahepatic bile duct
CPT/HCPCS: 36415; 80053

== ENCOUNTER 2018-01-20 06:27 | Day surgery (SDC) | payer MEDICARE ==
[~2018-01-20] VITALS: Ht 175.3 cm; Wt 68.2 kg
[2018-01-20] VITALS (11 sets, daily range): BP systolic 130–188; BP diastolic 74–114; PULSE 62–101; RESP 16–20; TEMP 97.6; O2SAT 89–98
[2018-01-20] MEDS ORDERED: NITROGLYCERIN 1000 MCG/5 ML VIAL OTHER ONE (06:28)
[2018-01-20 07:41] LABS: AUTOMATED NEUTROPHIL # 2.7 TH/MM3 (1.8-7.7); BASOPHIL % 0.9 % (0.0-2.0); EOSINOPHIL # 0.2 TH/MM3 (0-0.4); EOSINOPHIL % 5.9 % (0.0-4.0); HEMATOCRIT 30.3 % (39.0-51.0); HEMOGLOBIN 10.1 GM/DL (13.0-17.0); LYMPH % 12.5 % (9.0-44.0); LYMPHOCYTE # 0.5 TH/MM3 (1.0-4.8); MEAN CELL VOLUME 87.9 FL (80.0-100.0); MEAN CORPUSCULAR HEMOGLOBIN 29.3 PG (27.0-34.0); MEAN CORPUSCULAR HGB CONC 33.3 % (32.0-36.0); MEAN PLATELET VOLUME 8.3 FL (7.0-11.0); MONO % 10.3 % (0.0-8.0); MONOCYTE # 0.4 TH/MM3 (0-0.9); NEUT % 70.4 % (16.0-70.0); PLATELET COUNT 111 TH/MM3 (150-450); RED BLOOD COUNT 3.44 MIL/MM3 (4.50-5.90); WHITE BLOOD COUNT 3.8 TH/MM3 (4.0-11.0)
[2018-01-20] MEDS ORDERED: DEXAMETHASONE SOD PHOS 20 MG/5 ML VIAL IV ONE (07:45)
[2018-01-20] MEDS ORDERED: PANTOPRAZOLE SODIUM 40 MG VIAL IV PUSH ONE (07:45)
[2018-01-20] MEDS ORDERED: ONDANSETRON HCL 4 MG/2 ML VIAL IV PUSH ONE (07:45)
[2018-01-20] MEDS ORDERED: ceFAZolin 1,000 MG/NS 100 ML IV ONE ×2 (07:45)
[2018-01-20] MEDS ORDERED: KETOROLAC TROMETHAMINE 30 MG/ML (IVP) VIAL IV PUSH ONE (07:45)
[2018-01-20 07:57] LABS: PROTHROMBIN TIME - PATIENT 10.4 SEC (9.8-11.6)
[2018-01-20] MEDS ORDERED: IMPLANTED VASCULAR ACCESS PORT - SODIUM CHLORIDE FLUSH PRN IV FLUSH (08:00)
[2018-01-20] MEDS ORDERED: SODIUM CHLOR 0.9% 1000 ML INJ 1,000 ML IV SCH (08:00)
[2018-01-20] MEDS ORDERED: IMPLANTED VASCULAR ACCESS PORT - SODIUM CHLORIDE FLUSH IV FLUSH SCH (08:00)
[2018-01-20 08:04] LABS: ALT (GPT) 23 U/L (12-78); AST (GOT) 30 U/L (15-37); BICARBONATE 28.7 MEQ/L (21.0-32.0); BLOOD UREA NITROGEN 12 MG/DL (7-18); CALCIUM 8.9 MG/DL (8.5-10.1); CHLORIDE 106 MEQ/L (98-107); GLOMERULAR FILTRATION RATE 80 ML/MIN (>89); GLUCOSE,RANDOM 88 MG/DL (74-106); SODIUM (NA) 141 MEQ/L (136-145)
[2018-01-20 08:07] LABS: ALKALINE PHOSPHATASE 156 U/L (45-117); TOTAL BILIRUBIN ADULT 0.4 MG/DL (0.2-1.0); TOTAL PROTEIN 6.7 GM/DL (6.4-8.2)
[2018-01-20] MEDS ORDERED: ceFAZolin 2 GM PREMIX 50 ML ONE (08:08)
[2018-01-20] MEDS ORDERED: fentaNYL CITRATE 250 MCG/5 ML AMP ONE (10:16)
[2018-01-20] MEDS ORDERED: MIDAZOLAM HCL 5 MG/5 ML VIAL ONE (10:16)
[2018-01-20] MEDS ORDERED: HEPARIN SODIUM - IV 10,000 UNITS/10 ML VIAL ONE (10:17)
[2018-01-20] MEDS ORDERED: VERAPAMIL HCL 5 MG/2 ML VIAL ONE (10:17)
--- NOTE | 2018-01-20 11:23 | PD.RAD ---
Post Procedure Progress Note Pre Procedure Diagnosis: (1) Metastases to the liver Post Procedure Diagnosis: (1) Metastases to the liver Procedure Date: January 20, 2018 Supervising Radiologist: Nitesh Willoughby Proceduralist/Assist: RT Milena(R), Other Anesthesia: Conscious Sedation Plan of Activity Patient to Unit: ROPU Patient Condition: Good See PACS Report for procedural detail/treatment Nitesh Willoughby MD January 20, 2018 11:23
[2018-01-20] MEDS ORDERED: IODIXANOL 320 MG/ML 50 ML VIAL (for RAD SPEC) I-ARTERIAL ONE (11:30)
--- NOTE | 2018-01-20 11:55 | RADRPT ---
EXAM DATE/TIME: 01/20/2018 10:25 COMPARISON: TRANSCATH, IV OCCL HEPATIC Y90, December 30, 2017, 7:59. INDICATIONS : 87-year-old male with history of metastatic colorectal CA to the liver status post left Y90 embolization. Patient presents for right lobe treatment. 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 Administration of conscious sedation 2. ultrasound guided left radial artery access 3. selective catheter placement in the proper hepatic artery with selective angiography 4. subselective catheter placement in the right hepatic artery with subselective angiography 5. Yttrium-90 embolization of the right hepatic arteries DISCUSSION: Monitored moderate conscious sedation was provided for this procedure with continued monitoring of pa tient consciousness and physiologic status provided by interventional radiology nurse throughout the procedure and documented. Patient was placed supine on the angiographic table. Ultrasound evaluation of the left radial artery demonstrated the artery to be patent. Single image was obtained and placed in PACS archive. Micropunc ture needle was advanced into the left radial artery under direct ultrasound guidance and subsequentl y exchanged for a slim 5 [place] sheath. The 4 [place] Susana catheter was then advanced into the celiac artery and angiography was performed. This demonstrated patency of the hepatic arteries with redemon stration of abnormal enhancement near the dome of the liver and throughout the left lobe. Microcathet er was then advanced into the origin of the right hepatic artery and angiography was repeated. This c onfirmed the findings. The SIR-spheres acrylic delivery box (V-vial) and delivery set were prepped in standard fashion. The labels on the tubing and needles corresponding to plastics repairer's designations. The dose of SIR-sphere s to be delivered was determined by taking into account the patient's body surface area, tumor burden , liver function test, tumor burden, performance status, and lung shunting. Next, multiple small aliq uots of SIR-spheres were delivered intra-arterially to the hepatic masses with close fluoroscopic mon itoring to ensure forward flow in the vessel during the administration of the microspheres. Followup angiogram demonstrated persistent forward flow. Next, the microcatheter was withdrawn into the angiographic catheter, which was then removed from the sheath, and catheter tip grasped with multiple layers of sterile gauze. The angiographic catheter, m icrocatheter, V- vial, and all the tubing and needles associated with the delivery set were placed in to a container provided by radiation safety. Hemostasis was then obtained by placement of a radial compression device. Patient tolerated the proce dure well. FINDINGS: There was successful delivery of the radioactive microspheres to the hepatic artery. The microcathete r was positioned in the hepatic artery during the delivery of the microspheres. Throughout the proced ure, antegrade flow is maintained. No reflux was demonstrated fluoroscopically. Visually, entire dose within the V-vial was delivered to the patient. No leaks or spills of the radioactive material where identified during or after the procedure. CONCLUSION: 1. Technically successful Y-90 radioembolization of the right hepatic arteries, as above. Nitesh Willoughby MD on January 20, 2018 at 11:50 Board Certified Radiologist. This report was verified electronically.
--- NOTE | 2018-01-20 14:35 | RADRPT ---
EXAM DATE/TIME: 01/20/2018 13:37 [facility] COMPARISON: PRIOR BONE SCANS: No correlative bone scan available for comparison. INDICATIONS : Rectal and colon cancer. DOSE: 32.6 mCi Yttrium-90 Intraarterial MEDICAL HISTORY : Carcinoma, colon. Hernia, hiatal. SURGICAL HISTORY : Right elbow and pelvis. ENCOUNTER: Subsequent ACUITY: 4 - 6 months PAIN SCALE: 0/10 LOCATION: Abdomen. COMPARISON: [facility] Y-90 SCAN, December 30, 2017, 10:49. No previous studies obtainable for comparison. FINDINGS: Activity is demonstrated in the right lobe of the liver consistent with right hepatic artery administ ration of yttrium-90. No evidence for extrahepatic activity. CONCLUSION: 1. Activity confined to the right lobe of the liver without evidence for extrahepatic activity. Nitesh Willoughby MD on January 20, 2018 at 14:32 Board Certified Radiologist. This report was verified electronically.
[2018-01-20] MEDS ORDERED: LABETALOL HCL 100 MG/20 ML VIAL IV PUSH ONE (15:30)
== END 2018-01-20 16:29 | disposition home or self-care (01) ==
LOC: HROP 06:27 → HRIP 06:31 → HROP 16:29
PROVIDERS: ATTEND Internal Medicine Hematology & Oncology
DX: C78.7 Secondary malignant neoplasm of liver and intrahepatic bile duct (principal); C18.9 Malignant neoplasm of colon, unspecified; M10.9 Gout, unspecified; Z01.818 Encounter for other preprocedural examination
CPT/HCPCS: 36247; 75726; 76937; 77300; 77370; 78201; 79445; 80053; 85025; 85610; 85730; 99152; 99153; C1769; C1887; C1894; C2616; C9113; J0690; J1100; J1644; J1885; J2250; J2405; J3010; J7030; Q9967; 99211; G0463

== ENCOUNTER → 2018-01-28 | Outpatient (CLI) | payer MEDICARE ==
[2018-01-28 12:58] LABS: ALBUMIN 3.2 GM/DL (3.4-5.0); BLOOD UREA NITROGEN 18 MG/DL (7-18); CREATININE 0.84 MG/DL (0.60-1.30); GLOMERULAR FILTRATION RATE 86 ML/MIN (>89); GLUCOSE,FASTING 79 MG/DL (74-99); TOTAL PROTEIN 7.8 GM/DL (6.4-8.2)
[2018-01-28 12:59] LABS: ALKALINE PHOSPHATASE 213 U/L (45-117); ALT (GPT) 47 U/L (12-78); AST (GOT) 61 U/L (15-37); CALCIUM 8.9 MG/DL (8.5-10.1); CHLORIDE 101 MEQ/L (98-107); SODIUM (NA) 139 MEQ/L (136-145); TOTAL BILIRUBIN ADULT 0.5 MG/DL (0.2-1.0)
== END ==
LOC: CLAB 11:41
PROVIDERS: ATTEND Internal Medicine Hematology & Oncology
DX: C19 Malignant neoplasm of rectosigmoid junction (principal); C18.9 Malignant neoplasm of colon, unspecified
CPT/HCPCS: 36415; 80053

== ENCOUNTER 2018-01-30 14:12 | Day surgery (SDC) | END 2018-01-30 15:21 | disposition home or self-care (01) | DX: C78.7 Secondary malignant neoplasm of liver and intrahepatic bile duct (principal); C19 Malignant neoplasm of rectosigmoid junction; C18.9 Malignant neoplasm of colon, unspecified ==